=== PATIENT | male | born 1990 | race Caucasian/White ===

== ENCOUNTER 2021-07-14 17:32 | Emergency (ER) | payer BC ==
[2021-07-14] MEDS ORDERED: METHYLPREDNISOLONE 125 MG INJ ONE (18:30)
[2021-07-14] MEDS ORDERED: ALBUTEROL INHALER 60 PUFF/8 GM IH ONE (18:31)
--- NOTE | 2021-07-14 19:53 | ER ---
Nurse's Notes [facility] Name: Enrike Mahoney Jr Age: 30 yrs Sex: Male : 1990 Arrival Date: 07/14/2021 Time: 17:33 Bed 23 Private MD: Diagnosis: Acute upper respiratory infection, unspecified Presentation: 07/14 17:39 Chief complaint: Patient states: Cough, fever, loss of taste and smell since Thursday. jl7 Coronavirus screen: Vaccine status: Patient reports receiving the 2nd dose of the covid vaccine. Pfizer cough unrelated to allergies, fever, headache, loss of taste or smell, Client presents with at least one sign or symptom that may indicate coronavirus-19. Standard/surgical mask placed on the client. Provider contacted for isolation considerations. Ebola Screen: No symptoms or risks identified at this time. Initial Sepsis Screen: Does the patient meet any 2 criteria? No. Patient's initial sepsis screen is negative. Does the patient have a suspected source of infection? No. Patient's initial sepsis screen is negative. Risk Assessment: Do you want to hurt yourself or someone else? Patient reports no desire to harm self or others. Onset of symptoms was July 12, 2021. 17:39 Method Of Arrival: Ambulatory [facility] 17:39 Acuity: FRANCISCO 4 jl7 Triage Assessment: 17:40 General: Appears in no apparent distress. uncomfortable, Behavior is calm, cooperative, jl7 appropriate for age. Pain: Complains of pain in CORRIGAN Pain currently is 4 out of 10 on a pain scale. Respiratory: Airway is patent Respiratory effort is even, unlabored, Respiratory pattern is regular, symmetrical, not auscultated in triage. Historical: - Allergies: 17:40 No Known Allergies; jl7 - Home Meds: 17:40 None [Active]; jl7 - PMHx: 17:40 None; jl7 - PSHx: 17:40 None; jl7 - Immunization history:: Client reports receiving the 2nd dose of the Covid vaccine. - Social history:: Smoking status: Patient reports the use of cigarette tobacco products, smokes one-half pack cigarettes per day. Screenin:10 Abuse screen: Denies threats or abuse. Denies injuries from another. Nutritional ld1 screening: No deficits noted. Tuberculosis screening: No symptoms or risk factors identified. Fall Risk None identified. Assessment: 18:10 General: Appears in no apparent distress. comfortable, Behavior is calm, cooperative, ld1 appropriate for age. Pain: Denies pain. Neuro: Level of Consciousness is awake, alert, obeys commands, Oriented to person, place, time, situation. Cardiovascular: Capillary refill < 3 seconds Patient's skin is warm and dry. Respiratory: Airway is patent Respiratory effort is even, unlabored, Respiratory pattern is regular, symmetrical. GI: Abdomen is flat, non-distended. : No signs and/or symptoms were reported regarding the genitourinary system. EENT: No signs and/or symptoms were reported regarding the EENT system. Derm: Musculoskeletal: No signs and/or symptoms reported regarding the musculoskeletal system. 19:30 Reassessment: Patient appears in no apparent distress at this time. Patient is alert, lp1 oriented x 3, equal unlabored respirations, skin warm/dry/pink. Patient states feeling better. Vital Signs: 17:39 BP 136 / 86; Pulse 100; Resp 17; Temp 98.3; Pulse Ox 98% ; Weight 79.38 kg; Height 5 jl7 ft. 7 in. (170.18 cm); Pain 4/10; 18:10 BP 129 / 88; Pulse 92; Resp 18; Pulse Ox 99% on R/A; ld1 19:30 BP 110 / 79; Pulse 76; Resp 18; Pulse Ox 96% on R/A; lp1 17:39 Body Mass Index 27.41 (79.38 kg, 170.18 cm) jl7 ED Course: 17:33 Patient arrived in ED. am2 17:40 Triage completed. jl7 17:40 Arm band placed on right wrist. jl7 17:42 Ave Price, BETTY is Primary Nurse. ld1 17:48 Edson Salgado NP is PHCP. pm1 17:48 Todd Walsh MD is Attending Physician. pm1 18:06 Flu Sent. ld1 18:06 Strep Sent. ld1 18:10 Patient has correct armband on for positive identification. Bed in low position. Call ld1 light in reach. Side rails up X2. Pulse ox on. NIBP on. Door closed. Noise minimized. 18:10 No provider procedures requiring assistance completed. ld1 20:02 Patient did not have IV access during this emergency room visit. lp1 Administered Medications: 18:09 Drug: Albuterol 5 mg Route: Inhalation; ld1 18:09 Drug: SOLU-Medrol (methylPREDNISolone sodium succinate) 125 mg Route: IM; Site: right ld1 deltoid; 18:19 Follow up: Response: No adverse reaction ld1 Outcome: 19:53 Discharge ordered by MD. pm1 20:03 Discharged to home ambulatory, with significant other. lp1 20:03 Condition: good 20:03 Discharge instructions given to patient, Instructed on discharge instructions, follow up and referral plans. medication usage, Demonstrated understanding of instructions, follow-up care, medications, Prescriptions given X 3. 20:04 Patient left the ED. lp1 Signatures: Francia Kim RN RN lp1 Edson Salgado, TINY BLANK DRILLER pm1 Janeth Brower RN RN jl7 Luiza Gonzalez am2 Ave Price RN RN ld1 Corrections: (The following items were deleted from the chart) 18:41 18:06 CORONAVIRUS+MR.LAB.WILL drawn and sent. ld1 EDMS
--- NOTE | 2021-07-14 19:53 | EDPHYS ---
Physician Documentation [facility] Name: Enrike Mahoney Jr Age: 30 yrs Sex: Male : 1990 Arrival Date: 07/14/2021 Time: 17:33 Bed 23 Private MD: ED Physician Todd Walsh HPI: 07/14 18:01 This 30 yrs old Male presents to ER via Ambulatory with complaints of r/o pm1 covid, Cough, Congestion, Headache, bodyaches. 18:01 The patient or guardian reports cough. Onset: The symptoms/episode began/occurred 2 pm1 day(s) ago. Severity of symptoms: in the emergency department the symptoms are actually worse. Modifying factors: The symptoms are alleviated by OTC cold preparation, Tylenol. Associated signs and symptoms: Pertinent positives: fever, rhinorrhea, Postnasal drainage, headache, loss in sense of taste. The patient has not experienced similar symptoms in the past. The patient has not recently seen a physician. Patient concerned about possible Covid infection, and would like to be tested. Historical: - Allergies: 17:40 No Known Allergies; jl7 - Home Meds: 17:40 None [Active]; jl7 - PMHx: 17:40 None; jl7 - PSHx: 17:40 None; jl7 - Immunization history:: Client reports receiving the 2nd dose of the Covid vaccine. - Social history:: Smoking status: Patient reports the use of cigarette tobacco products, smokes one-half pack cigarettes per day. ROS: 18:01 Eyes: Negative for injury, pain, redness, and discharge. pm1 18:01 Cardiovascular: Negative for chest pain, palpitations, and edema. 18:01 Back: Negative for injury and pain, MS/Extremity: Negative for injury and deformity, Skin: Negative for injury, rash, and discoloration, Neuro: Negative for headache, weakness, numbness, tingling, and seizure. 18:01 Constitutional: Positive for body aches, fever. 18:01 ENT: Positive for rhinorrhea, sinus congestion, sinus pain, sore throat. 18:01 Respiratory: Positive for cough, shortness of breath, wheezing. 18:01 All other systems are negative. Exam: 18:01 Constitutional: This is a well developed, well nourished patient who is awake, alert, pm1 and in no acute distress. Head/Face: Normocephalic, atraumatic. 18:01 Back: No spinal tenderness. No costovertebral tenderness. Full range of motion. Skin: Warm, dry with normal turgor. Normal color with no rashes, no lesions, and no evidence of cellulitis. MS/ Extremity: Pulses equal, no cyanosis. Neurovascular intact. Full, normal range of motion. 18:01 ENT: Exam is negative for acute changes, Mouth: no acute changes, Lips: normal, moist, Oral mucosa: normal, pink and intact, moist, Posterior pharynx: no acute changes. 18:01 Cardiovascular: Exam negative for acute changes, Rate: normal, Rhythm: regular, Pulses: no pulse deficits are appreciated. 18:01 Respiratory: the patient does not display signs of respiratory distress, Respirations: normal, Breath sounds: wheezing: expiratory that is mild. 18:01 Abdomen/GI: Exam negative for acute changes, Palpation: abdomen is soft and non-tender, in all quadrants. 18:01 Neuro: Exam negative for acute changes, Orientation: is normal, Mentation: is normal, Motor: is normal, moves all fours. 19:52 Respiratory: the patient does not display signs of respiratory distress, Respirations: pm1 no acute changes, is not noted, Breath sounds: are clear throughout. Vital Signs: 17:39 BP 136 / 86; Pulse 100; Resp 17; Temp 98.3; Pulse Ox 98% ; Weight 79.38 kg; Height 5 jl7 ft. 7 in. (170.18 cm); Pain 4/10; 18:10 BP 129 / 88; Pulse 92; Resp 18; Pulse Ox 99% on R/A; ld1 19:30 BP 110 / 79; Pulse 76; Resp 18; Pulse Ox 96% on R/A; lp1 17:39 Body Mass Index 27.41 (79.38 kg, 170.18 cm) jl7 MDM: 17:48 Patient medically screened. pm1 19:52 Data reviewed: vital signs. Data interpreted: Pulse oximetry: on room air is 96 %. pm1 Interpretation: normal. Counseling: I had a detailed discussion with the patient and/or guardian regarding: the historical points, exam findings, and any diagnostic results supporting the discharge/admit diagnosis, lab results, the need for outpatient follow up, to return to the emergency department if symptoms worsen or persist or if there are any questions or concerns that arise at home. 07/14 17:51 Order name: Flu; Complete Time: 19:24 pm1 07/14 17:51 Order name: Strep; Complete Time: 19:24 pm1 07/14 18:41 Order name: SARS-COV-2 RT PCR; Complete Time: 19:49 EDMS 07/14 18:54 Order name: Throat Culture EDMS 07/14 17:51 Order name: Droplet/Contact Precautions; Complete Time: 18:06 pm1 07/14 17:51 Order name: Labs collected and sent; Complete Time: 18:06 pm1 07/14 17:51 Order name: O2 Per Protocol; Complete Time: 18:06 pm1 Administered Medications: 18:09 Drug: Albuterol 5 mg Route: Inhalation; ld1 18:09 Drug: SOLU-Medrol (methylPREDNISolone sodium succinate) 125 mg Route: IM; Site: right ld1 deltoid; 18:19 Follow up: Response: No adverse reaction ld1 Disposition: 07/15 05:40 Co-signature as Attending Physician, Todd Walsh MD I agree with the assessment and kdr plan of care. Disposition Summary: 07/14/21 19:53 Discharge Ordered Location: Home pm1 Problem: new pm1 Symptoms: have improved pm1 Condition: Stable pm1 Diagnosis - Acute upper respiratory infection, unspecified pm1 Followup: pm1 - With: Emergency Department - When: As needed - Reason: Worsening of condition Followup: pm1 - With: Private Physician - When: 2 - 3 days - Reason: Recheck today's complaints, Continuance of care, Re-evaluation by your physician Discharge Instructions: - Discharge Summary Sheet pm1 - Upper Respiratory Infection, Adult pm1 - COVID-19 pm1 Forms: - Medication Reconciliation Form pm1 - Thank You Letter pm1 - Antibiotic Education pm1 - Prescription Opioid Use pm1 - Work release form pm1 Prescriptions: - Ventolin HFA 90 mcg/actuation Inhalation HFA aerosol inhaler - inhale 2 puff by INHALATION route every 4-6 hours As needed; 1 Inhaler; pm1 Refills: 0, Product Selection Permitted - Tessalon Perles 100 mg Oral Capsule - take 1 capsule by ORAL route every 8 hours As needed; 15 capsule; Refills: 0, pm1 Product Selection Permitted - Medrol (Gama) 4 mg Oral Tablets, Dose Pack - take 1 tablet by ORAL route as directed - follow package instructions; 1 pm1 packet; Refills: 0, Product Selection Permitted Signatures: Dispatcher [employer] EDMS Todd Walsh MD MD kdr Edson Salgado, TINY CUSTOM APPLICATOR pm1 Janeth Brower RN RN jl7 Ave Price RN RN ld1 Corrections: (The following items were deleted from the chart) 07/14 18:41 17:52 CORONAVIRUS+MRJACI.BRZ ordered. EDMS EDMS
[2021-07-14 20:21] VITALS: TEMP 98.3
[2021-07-14 20:24] VITALS: BP 110/79; O2SAT 96
== END 2021-07-14 20:04 | disposition home or self-care (01) ==
LOC: ER 17:32
DX: J06.9 Acute upper respiratory infection, unspecified (principal); Z20.822 Contact with and (suspected) exposure to COVID-19
CPT/HCPCS: 87070; 87081; 87804 ×2; 96372; 99284; U0003; J2930